=== PATIENT | male | born 1955 | race Caucasian/White ===

== ENCOUNTER → 2016-07-25 | Outpatient (CLI) | payer MEDICARE ==
[2016-07-25 12:42] LABS: HEMATOCRIT 46.9 % (39.0-51.0); MEAN CELL VOLUME 90.8 FL (80.0-100.0); MEAN CORPUSCULAR HEMOGLOBIN 29.6 PG (27.0-34.0); MEAN CORPUSCULAR HGB CONC 32.6 % (32.0-36.0); PLATELET COUNT 162 TH/MM3 (150-450); RED BLOOD COUNT 5.16 MIL/MM3 (4.50-5.90); RED CELL DISTRIBUTION WIDTH 13.6 % (11.6-17.2); REVIEW FLAG FINAL; WHITE BLOOD COUNT 4.1 TH/MM3 (4.0-11.0)
[2016-07-25 13:12] LABS: ANION GAP 4 MEQ/L (5-15); AST (GOT) 17 U/L (15-37); BICARBONATE 30.1 MEQ/L (21.0-32.0); BLOOD UREA NITROGEN 13 MG/DL (7-18); CHLORIDE 108 MEQ/L (98-107); GLOMERULAR FILTRATION RATE 69 ML/MIN (>89); POTASSIUM 4.9 MEQ/L (3.5-5.1); SODIUM (NA) 142 MEQ/L (136-145)
[2016-07-25 13:16] LABS: ALKALINE PHOSPHATASE 69 U/L (45-117); ALT (GPT) 17 U/L (12-78); TOTAL BILIRUBIN ADULT 0.9 MG/DL (0.2-1.0)
== END ==
LOC: PLAB 09:00
DX: J40 Bronchitis, not specified as acute or chronic (principal); R05 Cough; R06.00 Dyspnea, unspecified
CPT/HCPCS: 36415; 80053; 82164; 85027

== ENCOUNTER → 2016-07-29 | Outpatient (CLI) | payer MEDICARE ==
--- NOTE | 2016-07-29 17:23 | RADRPT ---
EXAM DATE/TIME: 07/29/2016 13:14 [place] COMPARISON: No previous studies available for comparison. INDICATIONS : Shortness of breath on excertion, RADIATION DOSE: 5.4 CTDIvol (mGy) MEDICAL HISTORY : None SURGICAL HISTORY : None. ENCOUNTER: Initial ACUITY: 1 day PAIN SCALE: 0/10 LOCATION: chest TECHNIQUE: Volumetric scanning of the chest was performed. Using automated exposure control and adjustment of t he mA and/or kV according to patient size, radiation dose was kept as low as reasonably achievable to obtain optimal diagnostic quality images. FINDINGS: Imaging through the pulmonary parenchyma demonstrates interstitial fibrotic change and advanced COPD. There are multiple areas of rounded atelectasis and mild apical pleural thickening. There are scatte red areas of pleural calcification. The heart is normal in size. No pericardial or pleural effusion is seen. There is no significant genna r or mediastinal adenopathy. The visualized portions of upper abdomen are unremarkable. There are degenerative changes throughout the spine. CONCLUSION: 1. Advanced COPD changes. 2. Extensive pleural and parenchymal changes throughout both upper lobes which have an appearance mos t consistent with rounded atelectasis and scarring. A followup CT examination in 6 months to ensure s tability of these findings would be warranted. Moisés Vaughn MD on July 29, 2016 at 17:19 Board Certified Radiologist. This report was verified electronically.
--- NOTE | 2016-08-26 10:18 | RSPPFT ---
DATE OF PROCEDURE: 07/29/16 COMMENTS: Spirometry demonstrates an FEV1 of 1.3 at 35% of predicted, FVC of 4.1 at 79%, FEV1/FVC ratio is 31%. The FEF 25-75 is 18% of predicted. Post-bronchodilator study demonstrated no significant change. Lung volumes demonstrated a raised RV/TLC ratio indicating hyperinflation with air trapping. Diffusion capacity is mildly reduced but normal when corrected for alveolar volume. Flow volume loop suggests an obstructive defect. IMPRESSION: 1. Severe obstructive disease. 2. No significant change following use of bronchodilator. 3. Mild reduction in diffusion capacity.
== END ==
LOC: HRAD 12:58
DX: R05 Cough (principal); R06.00 Dyspnea, unspecified; D86.9 Sarcoidosis, unspecified
CPT/HCPCS: 71250; 94060; 94726; 94729